=== PATIENT | female | born 1935 | race African-American/Black ===

== ENCOUNTER 2016-05-29 16:27 | Emergency (ER) | payer MEDICARE | END 2016-05-29 23:00 | disposition home or self-care (01) | LOC: D.ER 16:27 | DX: S42.291A Other displaced fracture of upper end of right humerus, initial encounter for closed fracture (principal); W01.0XXA Fall on same level from slipping, tripping and stumbling without subsequent striking against object, initial encounter; Y93.89 Activity, other specified; Y92.019 Unspecified place in single-family (private) house as the place of occurrence of the external cause; E11.8 Type 2 diabetes mellitus with unspecified complications; I10 Essential (primary) hypertension ==

== ENCOUNTER 2016-06-09 12:25 | Emergency (ER) | payer MEDICARE | END 2016-06-09 13:30 | disposition home or self-care (01) | LOC: D.ER 12:25 | DX: I10 Essential (primary) hypertension (principal); E11.9 Type 2 diabetes mellitus without complications; S42.201A Unspecified fracture of upper end of right humerus, initial encounter for closed fracture; X58.XXXA Exposure to other specified factors, initial encounter; Y93.89 Activity, other specified; Y92.89 Other specified places as the place of occurrence of the external cause ==

== ENCOUNTER 2019-09-14 09:45 | Emergency (ER) | payer MEDICARE ==
[~2019-09-14] VITALS: Ht 152.4 cm; Wt 90.0 kg
[2019-09-14 10:13] VITALS: Ht 152.4 cm; Wt 90.0 kg
[2019-09-14] MEDS ORDERED: GLUCOPHAGE500 MG PO (10:14)
[2019-09-14] MEDS ORDERED: MICARDIS40 MG PO (10:16)
[2019-09-14 11:52] VITALS: BP 148/85
== END 2019-09-14 11:54 | disposition home or self-care (01) ==
LOC: D.ER 09:45
DX: S91.312A Laceration without foreign body, left foot, initial encounter (principal); W22.8XXA Striking against or struck by other objects, initial encounter; Y93.9 Activity, unspecified; Y92.9 Unspecified place or not applicable; E11.9 Type 2 diabetes mellitus without complications; I10 Essential (primary) hypertension; Z79.84 Long term (current) use of oral hypoglycemic drugs